=== PATIENT | male | born 1970 ===

== ENCOUNTER 2021-01-10 06:39 | Day surgery (SDC) | payer OTHER | END 2021-01-10 12:00 | disposition home or self-care (01) | LOC: AMB-ENDOS 06:39 | PROVIDERS: ATTEND Surgery | DX: K62.1 Rectal polyp (principal); K63.5 Polyp of colon; Z20.822 Contact with and (suspected) exposure to COVID-19; Z12.11 Encounter for screening for malignant neoplasm of colon ==

== ENCOUNTER 2021-07-17 12:03 | Outpatient (CLI) | payer OTHER | END 2021-07-17 12:21 | disposition home or self-care (01) | LOC: RAD 12:03 | PROVIDERS: ATTEND Internal Medicine | DX: S32.10XA Unspecified fracture of sacrum, initial encounter for closed fracture (principal); M15.0 Primary generalized (osteo)arthritis; M25.511 Pain in right shoulder; M25.512 Pain in left shoulder ==

== ENCOUNTER 2021-09-04 09:00 | Outpatient (CLI) | payer OTHER | END 2021-09-04 09:30 | disposition home or self-care (01) | LOC: PPH VACUNA 09:00 | PROVIDERS: ATTEND Emergency Medicine Pediatric Emergency Medicine | DX: Z23 Encounter for immunization (principal) ==

== ENCOUNTER 2021-09-11 07:54 | Outpatient (CLI) | payer OTHER | END 2021-09-11 08:15 | disposition home or self-care (01) | LOC: MRI 07:54 | PROVIDERS: ATTEND Internal Medicine | DX: M54.17 Radiculopathy, lumbosacral region (principal) | CPT/HCPCS: 72148 ==

== ENCOUNTER 2024-05-26 08:41 | Outpatient (CLI) | payer OTHER | END 2024-05-26 08:46 | disposition home or self-care (01) | LOC: SONOGRAMA 08:41 | PROVIDERS: ATTEND Urology | DX: N40.1 Benign prostatic hyperplasia with lower urinary tract symptoms (principal); R31.1 Benign essential microscopic hematuria; N20.0 Calculus of kidney ==